=== PATIENT | male | born 1955 | race Caucasian/White ===

== ENCOUNTER → 2018-01-19 08:42 | Outpatient (CLI) | payer OTHER, SELFPAY ==
[2018-01-19 09:40] LABS: Add Manual Diff / Slide Review NO; Basophils Percent Auto 0.4 % (0-2); Eosinophils Percent Auto 1.9 % (2-4); Hematocrit 42.1 % (41-53); Hemoglobin 14.4 g/dL (13.5-17.5); Lymphocytes Percent Auto 18.2 % (25-40); Mean Corpuscular HGB Conc 34.2 % (30-36); Mean Corpuscular Hemoglobin 30.7 PG (26-34); Mean Corpuscular Volume 89.8 fL (80-100); Monocytes Percent Auto 9.2 % (3-14); Neutrophils Absolute Auto 3800 /uL (3000-5900); Neutrophils Percent Auto 70.3 % (50-75); Platelet Count 145 X10^3/uL (150-400); Red Blood Cell Count 4.69 X10^6/uL (4.5-5.9); Red Cell Distribution Width 13.4 % (11.6-14.8); White Blood Cell Count 5.4 X10^3/uL (4.5-11.0)
[2018-01-19 10:05] LABS: Alanine Aminotransferase 28 IU/L (21-72); Albumin Globulin Ratio 1.6 (1.0-2.8); Alkaline Phosphatase 54 U/L (38-126); Aspartate Aminotransferase 21 IU/L (17-59); BUN Creatinine Ratio 15.6 (6-22); Bilirubin Total 0.5 mg/dL (0.2-1.3); Blood Urea Nitrogen 14 mg/dL (9-20); Calcium 8.6 mg/dL (8.4-10.2); Carbon Dioxide 30 mmol/L (22-32); Chloride 102 mmol/L (98-107); Cholesterol 183 mg/dL (140-199); Estimated Glomerular Filt Rate > 60.0 mL/min (>60); Globulin 2.5 g/dL (1.7-4.1); Glucose 194 mg/dL (80-110); HDL Cholesterol 50 mg/dL (40-60); HEMOLYSIS < 15 (0-50); LDL Cholesterol Calculated 119 mg/dL (<100); Potassium 4.3 mmol/L (3.4-5.1); Sodium 142 mmol/L (137-145); Total Protein 6.5 g/dL (6.3-8.2); Triglycerides 71 mg/dL (35-150)
[2018-01-19 10:09] LABS: Hemoglobin A1C% w Est Avg Glu 8.8 % (4.0-6.0)
[2018-01-19 10:32] LABS: Thyroid Stimulating Hormone 2.69 uIU/mL (0.47-4.68)
[2018-01-19 14:32] LABS: Appearance Urine UA CLEAR; Bilirubin Urine UA NEGATIVE (NEGATIVE); Color Urine UA YELLOW; Glucose Urine UA 2+ g/dL (Normal); Ketones Urine UA NEGATIVE (NEGATIVE); Leukocyte Esterase Urine UA NEGATIVE (NEGATIVE); Nitrite Urine UA NEGATIVE (Negative); Occult Blood Urine UA NEGATIVE (Negative); Protein Urine UA NEGATIVE (Negative); Specific Gravity Urine UA 1.015 (1.000-1.035)
== END ==
PROVIDERS: PCP Family Medicine; Visit Provider Family Medicine
DX: E11.9 Type 2 diabetes mellitus without complications (principal); E78.5 Hyperlipidemia, unspecified; I10 Essential (primary) hypertension; Z51.81 Encounter for therapeutic drug level monitoring
CPT/HCPCS: 36415; 80053; 80061; 81003; 83036; 84443; 85025

== ENCOUNTER → 2018-05-09 09:23 | Outpatient (CLI) | payer OTHER, SELFPAY ==
[2018-05-09 10:09] LABS: Add Manual Diff / Slide Review NO; Basophils Absolute Auto 0 /uL (0-100); Basophils Percent Auto 0.6 % (0-2); Eosinophils Absolute Auto 100 /uL (0-450); Eosinophils Percent Auto 2.7 % (2-4); Hematocrit 45.7 % (41-53); Hemoglobin 15.3 g/dL (13.5-17.5); Lymphocytes Absolute Auto 1500 /uL (1100-4500); Lymphocytes Percent Auto 28.8 % (25-40); Mean Corpuscular HGB Conc 33.5 % (30-36); Mean Corpuscular Hemoglobin 30.5 PG (26-34); Monocytes Absolute Auto 500 /uL (0-900); Monocytes Percent Auto 9.4 % (3-14); Neutrophils Absolute Auto 3100 /uL (1500-7000); Neutrophils Percent Auto 58.5 % (50-75); Platelet Count 148 X10^3/uL (150-400); Red Blood Cell Count 5.02 X10^6/uL (4.5-5.9); Red Cell Distribution Width 13.6 % (11.6-14.8); White Blood Cell Count 5.3 X10^3/uL (4.5-11.0)
[2018-05-09 10:23] LABS: Alanine Aminotransferase 31 IU/L (21-72); Albumin 4.3 g/dL (3.5-5.0); Albumin Globulin Ratio 1.5 (1.0-2.8); Alkaline Phosphatase 53 U/L (38-126); Aspartate Aminotransferase 24 IU/L (17-59); Bilirubin Total 0.8 mg/dL (0.2-1.3); Blood Urea Nitrogen 23 mg/dL (9-20); Calcium 9.6 mg/dL (8.4-10.2); Carbon Dioxide 27 mmol/L (22-32); Chloride 101 mmol/L (98-107); Cholesterol 227 mg/dL (140-199); Estimated Glomerular Filt Rate > 60.0 mL/min (>60); Globulin 2.8 g/dL (1.7-4.1); Glucose 167 mg/dL (80-110); HDL Cholesterol 64 mg/dL (40-60); HEMOLYSIS < 15 (0-50); LDL Cholesterol Calculated 148 mg/dL (<100); Sodium 138 mmol/L (137-145); Total Protein 7.1 g/dL (6.3-8.2); Triglycerides 73 mg/dL (35-150)
[2018-05-09 10:31] LABS: Hemoglobin A1C% w Est Avg Glu 8.9 % (4.0-6.0)
[2018-05-09 10:55] LABS: Thyroid Stimulating Hormone 2.95 uIU/mL (0.47-4.68)
== END ==
PROVIDERS: PCP Family Medicine; Visit Provider Family Medicine
DX: E11.9 Type 2 diabetes mellitus without complications (principal); I10 Essential (primary) hypertension; Z51.81 Encounter for therapeutic drug level monitoring
CPT/HCPCS: 36415; 80053; 80061; 83036; 84443; 85025

== ENCOUNTER 2018-06-09 06:41 | Day surgery (SDC) | payer OTHER, SELFPAY ==
[2018-06-02 08:34] VITALS: BMI 29.0
[2018-06-09] VITALS (7 sets, daily range): BP systolic 120–131; BP diastolic 67–81; PULSE 54–79; RESP 10–20; TEMP 36.1–36.6; O2SAT 94–96; BMI 29.0
[2018-06-09] MEDS: LACTATED RINGERS 1,000 ML 100 ML IV (07:23)
--- NOTE | 2018-06-09 07:55 | PM.PREOP ---
Pre-operative Note Interval Note History & Physical reviewed/Exam performed by Physician: Yes Changes to H&P: No
[2018-06-09] MEDS: CEFAZOLIN 2 GM/100 ML FROZ.PIGGY IV (07:57)
--- NOTE | 2018-06-09 08:23 | SUR.OPER ---
Supine on padded OR bed, head on pillow, arms secured on padded arm boards at <90 degrees abduction, legs uncrossed, safety belt at thigh, tape over blanket over lower legs.
[2018-06-09] MEDS: BUPIVACAINE 0.5% (PF) VIAL 30 ML INJ (08:33)
[2018-06-09] MEDS: INSULIN REGULAR 100 UNIT/ML 3 ML VIAL IV (09:21)
[2018-06-09] MEDS: fentaNYL 100 MCG/2 ML INJ 50 MCG IV (09:40)
--- NOTE | 2018-06-09 09:49 | P.OP_ITS ---
Operative Date/Time/Diagnoses Date of procedure: 06/09/18 Time of procedure: 09:19 Pre-op diagnosis: Right inguinal hernia reducible Post-op diagnosis: same (Direct and indirect components) Procedure & Clinicians Procedure: Repair of hernia with plug and patch technique Same procedure as scheduled: Yes Indications: Symptomatic hernia Surgeon: Fran Manuel Click Yes if Unassisted: Yes Anesthesia Type: General Operative Notes Findings: Indirect and direct hernia Closure Type: primary Specimen(s): none sent Estimated Blood Loss (mL): 10 Blood products transfused: none Procedure in detail: The patient was placed supine on the operating room table a nd underwent general LMA anesthesia. He was prepped and draped in the usual fashion. A transverse incision was made overlying the internal ring and carried down to the level of the external oblique. The external oblique was opened parallel with its fibers through the external ring. The cord structures were elevated. The cremaster was opened proximally and search made for an indirect sac. 1 was found. It was dissected off surrounding structures. There was fat within the wall which was dissected away. It was suture ligated with a 2 0 silk at the level deep epigastric vessels. Distal portion was removed and the stump allowed to retract.. The floor was examined and was found to be attenuated with fat protruding through it adjacent to the cord but on the inferior aspect. I removed some of this fat and decided to place a large plug into the defect that would take care of not only this defect but also the indirect sac. A large plug was placed intact with interrupted Ethibond suture. The floor was closed over the mesh.. A patch was placed across the floor and tacked at the pubic tubercle, the posterior lamella of the anterior rectus sheath, the ilioinguinal ligament, and superior lateral to the cord. The opening was modified as necessary to prevent tight constriction of the cord. Sutures of 0 Tycron were used to secure the mesh. The external oblique was closed with a running 3 0 Vicryl. The subcu was closed with interrupted 3 0 Vicryl. The skin was closed with a running 4 0 Vicryl subcuticular stitch and Steri-Strips. Dressing was applied, the patient was awakened, and the patient was taken to the recovery area in good condition. Complications: none Condition: stable Disposition: PACU Plan for aftercare: Follow-up in office
[2018-06-09] MEDS: OXYCODONE/ACETAMINOPHEN 5/325 TABLET 1 TAB PO (09:56)
--- NOTE | 2018-06-09 10:05 | SUR.PHASEI ---
Stable PACU stay, medicated with fentanyl and percocet, dressing remained c/d/i. to opd, Daisy assumed care, brought in, bed low and locked call castillo in hand.
== END 2018-06-09 10:20 | disposition home or self-care (01) ==
PROVIDERS: PCP Family Medicine; Visit Provider Specialist
PROC: (CPT 49505; principal; 2018-06-09 07:45)
DX: K40.90 Unilateral inguinal hernia, without obstruction or gangrene, not specified as recurrent (principal); E11.9 Type 2 diabetes mellitus without complications
CPT/HCPCS: 49505; C1781; J0690; J2250; J2405; J2704; J3010

== ENCOUNTER → 2018-11-10 08:51 | Outpatient (CLI) | payer OTHER, SELFPAY ==
[2018-11-10 09:54] LABS: Hemoglobin A1C% w Est Avg Glu 8.6 % (4.0-6.0)
[2018-11-10 10:12] LABS: Alanine Aminotransferase 19 IU/L (21-72); Albumin 4.1 g/dL (3.5-5.0); Albumin Globulin Ratio 1.6 (1.0-2.8); Alkaline Phosphatase 57 U/L (38-126); Aspartate Aminotransferase 22 IU/L (17-59); Bilirubin Total 0.9 mg/dL (0.2-1.3); Blood Urea Nitrogen 17 mg/dL (9-20); Calcium 9.7 mg/dL (8.4-10.2); Carbon Dioxide 30 mmol/L (22-32); Chloride 100 mmol/L (98-107); Cholesterol 167 mg/dL (140-199); Estimated Glomerular Filt Rate > 60.0 mL/min (>60); Globulin 2.6 g/dL (1.7-4.1); Glucose 177 mg/dL (80-110); HDL Cholesterol 65 mg/dL (40-60); HEMOLYSIS < 15 (0-50); LDL Cholesterol Calculated 84 mg/dL (<100); Potassium 4.2 mmol/L (3.4-5.1); Sodium 137 mmol/L (137-145); Total Protein 6.7 g/dL (6.3-8.2); Triglycerides 90 mg/dL (35-150)
== END ==
PROVIDERS: PCP Family Medicine; Visit Provider Family Medicine
DX: E11.9 Type 2 diabetes mellitus without complications (principal); I10 Essential (primary) hypertension
CPT/HCPCS: 36415; 80053; 80061; 83036

== ENCOUNTER → 2019-03-21 09:17 | Outpatient (CLI) | payer OTHER, SELFPAY ==
[2019-03-21 09:49] LABS: Hemoglobin A1C% w Est Avg Glu 8.5 % (4.0-6.0)
[2019-03-21 09:50] LABS: Alanine Aminotransferase 23 IU/L (<50); Albumin 4.3 g/dL (3.5-5.0); Albumin Globulin Ratio 1.7 (1.0-2.8); Alkaline Phosphatase 58 U/L (38-126); Aspartate Aminotransferase 24 IU/L (17-59); Bilirubin Total 0.8 mg/dL (0.2-1.3); Blood Urea Nitrogen 21 mg/dL (9-20); Calcium 9.3 mg/dL (8.4-10.2); Carbon Dioxide 31 mmol/L (22-32); Chloride 101 mmol/L (98-107); Estimated Glomerular Filt Rate > 60.0 mL/min (>60); Globulin 2.6 g/dL (1.7-4.1); Glucose 226 mg/dL (80-110); HEMOLYSIS < 15 (0-50); Potassium 4.4 mmol/L (3.4-5.1); Sodium 138 mmol/L (137-145); Total Protein 6.9 g/dL (6.3-8.2)
[2019-03-21 10:19] LABS: Prostate Specific Antigen Scrn 1.45 ng/mL (0.1-4.0)
== END ==
PROVIDERS: PCP Family Medicine; Visit Provider Family Medicine
DX: E11.9 Type 2 diabetes mellitus without complications (principal); E78.5 Hyperlipidemia, unspecified; I10 Essential (primary) hypertension; Z12.5 Encounter for screening for malignant neoplasm of prostate
CPT/HCPCS: 36415; 80053; 83036; G0103

== ENCOUNTER → 2019-10-31 08:57 | Outpatient (CLI) | payer MEDICARE, OTHER, SELFPAY ==
[2019-10-31 09:41] LABS: Hemoglobin A1C% w Est Avg Glu 8.3 % (4.0-6.0)
[2019-10-31 09:49] LABS: Alanine Aminotransferase 18 IU/L (<50); Albumin 4.1 g/dL (3.5-5.0); Albumin Globulin Ratio 1.8 (1.0-2.8); Alkaline Phosphatase 50 U/L (38-126); Aspartate Aminotransferase 24 IU/L (17-59); Bilirubin Total 0.7 mg/dL (0.2-1.3); Blood Urea Nitrogen 18 mg/dL (9-20); Calcium 9.3 mg/dL (8.4-10.2); Carbon Dioxide 27 mmol/L (22-32); Chloride 104 mmol/L (98-107); Cholesterol 149 mg/dL (140-199); Estimated Glomerular Filt Rate > 60.0 mL/min (>60); Globulin 2.3 g/dL (1.7-4.1); Glucose 146 mg/dL (80-110); HDL Cholesterol 66 mg/dL (40-60); HEMOLYSIS < 15 (0-50); LDL Cholesterol Calculated 71 mg/dL (<100); Potassium 4.2 mmol/L (3.4-5.1); Sodium 139 mmol/L (137-145); Total Protein 6.4 g/dL (6.3-8.2); Triglycerides 62 mg/dL (35-150)
[2019-10-31 15:20] LABS: Creatinine Urine Random 296.6 mg/dL
[2019-10-31 15:24] LABS: Microalbumin Urine Random 9.2 mg/dL (0-1.6)
== END ==
PROVIDERS: PCP Family Medicine; Referring Provider Family Medicine; Visit Provider Family Medicine
DX: E11.9 Type 2 diabetes mellitus without complications (principal); E78.5 Hyperlipidemia, unspecified; I10 Essential (primary) hypertension; Z76.89 Persons encountering health services in other specified circumstances
CPT/HCPCS: 36415; 80053; 80061; 82043; 82570; 83036

== ENCOUNTER → 2020-05-28 08:14 | Outpatient (CLI) | payer MEDICARE, OTHER, SELFPAY ==
[2020-05-28 09:38] LABS: Add Manual Diff / Slide Review NO; Basophils Absolute Auto 0 /uL (0-100); Basophils Percent Auto 0.4 % (0-2); Eosinophils Absolute Auto 100 /uL (0-450); Eosinophils Percent Auto 1.8 % (2-4); Hematocrit 44.9 % (41-53); Hemoglobin 14.9 g/dL (13.5-17.5); Lymphocytes Absolute Auto 900 /uL (1100-4500); Lymphocytes Percent Auto 12.6 % (25-40); Mean Corpuscular HGB Conc 33.2 % (30-36); Mean Corpuscular Hemoglobin 30.1 PG (26-34); Mean Corpuscular Volume 90.6 fL (80-100); Monocytes Absolute Auto 500 /uL (0-900); Monocytes Percent Auto 6.2 % (3-14); Neutrophils Absolute Auto 5900 /uL (1500-7000); Platelet Count 153 X10^3/uL (150-400); Red Blood Cell Count 4.95 X10^6/uL (4.5-5.9); Red Cell Distribution Width 12.9 % (11.6-14.8); White Blood Cell Count 7.4 X10^3/uL (4.5-11.0)
[2020-05-28 09:47] LABS: Hemoglobin A1C% w Est Avg Glu 8.5 % (4.0-6.0)
[2020-05-28 10:06] LABS: Alanine Aminotransferase 21 IU/L (<50); Albumin 4.4 g/dL (3.5-5.0); Albumin Globulin Ratio 1.6 (1.0-2.8); Alkaline Phosphatase 57 U/L (38-126); Aspartate Aminotransferase 26 IU/L (17-59); BUN Creatinine Ratio 20.2 (6-22); Bilirubin Total 0.7 mg/dL (0.2-1.3); Blood Urea Nitrogen 20 mg/dL (9-20); Calcium 9.6 mg/dL (8.4-10.2); Carbon Dioxide 30 mmol/L (22-32); Chloride 100 mmol/L (98-107); Cholesterol 167 mg/dL (140-199); Estimated Glomerular Filt Rate > 60.0 mL/min (>60); Globulin 2.8 g/dL (1.7-4.1); Glucose 191 mg/dL (80-110); HDL Cholesterol 66 mg/dL (40-60); HEMOLYSIS < 15 (0-50); LDL Cholesterol Calculated 84 mg/dL (<100); Potassium 4.7 mmol/L (3.4-5.1); Sodium 135 mmol/L (137-145); Total Protein 7.2 g/dL (6.3-8.2); Triglycerides 84 mg/dL (35-150)
== END ==
PROVIDERS: PCP Family Medicine; Referring Provider Family Medicine; Visit Provider Family Medicine
DX: E11.9 Type 2 diabetes mellitus without complications (principal); E78.5 Hyperlipidemia, unspecified; I10 Essential (primary) hypertension
CPT/HCPCS: 36415; 80053; 80061; 83036; 85025

== ENCOUNTER → 2020-06-03 12:00 | Outpatient (CLI) | payer MEDICARE, OTHER, SELFPAY ==
--- NOTE | 2020-06-03 12:02 | DI.RAD.S_ITS ---
PROCEDURE: XR LUMBAR SPINE 2-3V INDICATIONS: low back pain radiating into leg TECHNIQUE: 3 views of the lumbar spine were acquired. COMPARISON: None. FINDINGS: Bones: No fracture. Multilevel degenerative endplate sclerosis and spurring. Diffuse facet arthropathy. Grade 1 anterolisthesis of L4 on L5. Diffuse mild to moderate narrowing of the lumbar disc spaces. Soft tissues: Overlying bowel gas pattern is normal. No suspicious soft tissue calcifications. IMPRESSION: [id number] multilevel lumbar spondylosis and facet arthropathy Grade 1 anterolisthesis of L4 on L5. Dictated by: Tee Chiu M.D. on 06/03/2020 at 16:07 Approved by: Tee Chiu M.D. on 06/03/2020 at 16:09
== END ==
PROVIDERS: PCP Family Medicine; Referring Provider Family Medicine; Visit Provider Family Medicine
DX: M54.5 Low back pain (principal); M47.26 Other spondylosis with radiculopathy, lumbar region; M43.16 Spondylolisthesis, lumbar region
CPT/HCPCS: 72100

== ENCOUNTER → 2020-06-10 07:04 | Outpatient (CLI) | payer MEDICARE, OTHER, SELFPAY ==
--- NOTE | 2020-06-10 07:05 | DI.MRI.S_ITS ---
PROCEDURE: MR LUMBAR SPINE WO CON INDICATIONS: low back pain radiating into leg TECHNIQUE: Noncontrast sagittal T1 spin echo and T2 fast echo, sagittal STIR, axial T1 and T2 fast spin echo through the lumbar spine. In cases with scoliosis, additional coronal T2 fast spin echo may be performed. COMPARISON: None. FINDINGS: Image quality: Excellent. Alignment and Curvature: There is trace retrolisthesis of L2 on L3, L3 on L4, trace anterolisthesis of L4 on L5, with the latter measuring 3 mm. Bone Marrow: Marrow is of normal overall signal. No acute vertebral body compression fractures. Spinal Cord: Conus medullaris terminates at the L1 level. Visualized cord demonstrates normal signal and size. Paraspinous Soft Tissues: No paravertebral masses. Discs: Multilevel [id number] disc desiccation is present. L1-L2: Minimal disc bulge without spinal stenosis or foraminal narrowing. L2-L3: Mild disc bulge including a left foraminal component. Mild spinal stenosis is present. Minimal left foraminal narrowing with facet and ligamentum flavum hypertrophy. L3-L4: Mild disc bulge with mild spinal stenosis. Mild moderate left and mild right foraminal narrowing with facet and ligamentum flavum hypertrophy. L4-L5: Mild disc bulge with minimal spinal stenosis. Severe bilateral foraminal narrowing, right greater than left with slight flattening of the exiting L4 nerve root on the right. Facet and ligamentum flavum hypertrophy are present. There is appearance of partial bilateral pars defect at L4. L5-S1: Mild disc bulge with minimal canal narrowing. Mild bilateral foraminal narrowing with facet and ligamentum flavum hypertrophy. IMPRESSION: 1. Multilevel disc bulges. 2. Overall multilevel mild spinal stenosis predominantly secondary to disc bulge with contributing affective facet/ligamentum flavum arthropathy. 3. Multilevel foraminal narrowing severe at L4-5 secondary to facet/ligamentum flavum arthropathy as well as anterior listhesis. Suspected partial pars defect is identified at this level. If this remains of concern, CT is recommended for further evaluation. Dictated by: Shalini Mcrae M.D. on 06/10/2020 at 9:31 Approved by: Shalini Mcrae M.D. on 06/10/2020 at 9:39
== END ==
PROVIDERS: PCP Family Medicine; Referring Provider Family Medicine; Visit Provider Family Medicine
DX: M54.5 Low back pain (principal); M51.16 Intervertebral disc disorders with radiculopathy, lumbar region; M51.17 Intervertebral disc disorders with radiculopathy, lumbosacral region; M48.061 Spinal stenosis, lumbar region without neurogenic claudication; M48.07 Spinal stenosis, lumbosacral region
CPT/HCPCS: 72148